=== PATIENT | female | born 1950 | race Caucasian/White ===

== ENCOUNTER 2022-11-13 00:53 | Day surgery (SDC) | payer OTHER, SELFPAY ==
[2022-10-26 13:37] VITALS: BMI 34.2
[2022-11-13 07:15] VITALS: BP 134/78; PULSE 97; RESP 16; TEMP 36.3; O2SAT 100
[2022-11-13 07:27] LABS: Glucose Point of Care 139 mg/dl (65-105)
[2022-11-13] MEDS: LACTATED RINGERS 1,000 ML 150 ML IV CONT (07:27)
--- NOTE | 2022-11-13 07:40 | WPDANESEPPF ---
Anes - Initial Pre Proc Eval Procedure: Operation Date: 11/13/22 08:30 Proposed Procedures p Screening Colonoscopy - Killian Sharma MD Date/Time: 11/13/22 07:40 Surgeon: Killian Sharma MD Pre Op Diagnosis: neoplasm screening Patient Data Age: 72 Gender: F Height: 1.7 m Weight: 97.8 kg Last Vital Signs Temp 36.3 C L 11/13/22 07:15 Pulse 97 11/13/22 07:15 Resp 16 11/13/22 07:15 BP 134/78 11/13/22 07:15 Pulse Ox 100 11/13/22 07:15 O2 Del Method Room Air 11/13/22 07:15 Allergies Allergy/AdvReac Type Severity Reaction Status Date / Time No Known Allergies Allergy Verified 11/13/22 07:14 Home Medications Medication Instructions Recorded Confirmed Type simvastatin 20 mg tablet 20 mg PO DAILY #90 tabs 07/16/22 10/26/22 Rx metformin 1,000 mg tablet 1,000 mg PO BID #180 tabs 07/19/22 10/26/22 Rx levothyroxine 137 mcg tablet 137 mcg PO DAILY #90 tabs 07/23/22 10/26/22 Rx cetirizine 10 mg tablet (Zyrtec) 10 mg PO DAILY PRN allergies 09/06/22 10/26/22 History famotidine 20 mg tablet (Pepcid) 20 mg PO DAILY PRN Acid Reflux 09/06/22 10/26/22 History lisinopril 5 mg tablet 5 mg PO DAILY #90 tabs 10/03/22 10/26/22 Rx sitagliptin phosphate 25 mg tablet 25 mg PO DAILY #90 tabs 10/15/22 10/26/22 Rx (Januvia) Laboratory Tests 11/13/22 07:20 POC Capillary Glucose 139 H mg/dl (65-105) Patient hx anesthesia problems: none Family hx anesthesia problems: none Results Review: All pre-operative results and documents have been reviewed as part of the pre-operative evaluation. 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 Family History Family History Mother Diabetes mellitus Father Cerebrovascular accident Other Family history of Parkinson's disease Family history of arthritis Family history of malignant neoplasm of breast Social History Social History Smoking packs per day: 0.5 Smoking cigarettes per day: 10.0 Years smoked: 5 Smoking pack-years: 2.50 Smoking status: Former smoker Tobacco type: cigarettes Smoking end date: 03/11/82 Alcohol intake: current Drinks per week: 2 Alcohol use details: seldom Substance use: never Substance use type: does not use Lack of Transportation: No Lack of Food: Never True Current Housing: I Have Housing Concerned About Future Housing: No Difficulty Paying Gas/Electric Bills: No Difficulty Paying for Meds: No Currently Unemployed: No Education: Bachelor's Degree Difficulty w/ Childcare or Family Care: No Living arrangements: with family Additional living arrangements comments: Occupation/Education: retired Gender identity (if verbalized by the patient): Female Sexual Orientation (if Verbalized by the Patient): Straight or Heterosexual Spiritual care concerns: No Agree to blood products: Yes Anes - Eval Final PreProcedure Day of Procedure 11/13/22 07:40 Patient weight: obese Heart: regular rate and rhythm Lungs: clear to auscultation Airway: Mallampati scale class II Neurological: alert and oriented Last oral intake: >/= 8 hours ASA classific
--- NOTE | 2022-11-13 08:06 | PM.HPGS ---
History of Present Illness History of Present Illness Consent: Risks, benefits, and alternatives have been discussed and questions answered. Patient agrees to proceed with procedure. Chief complaint: neoplasm screening Narrative: Suzette Sawant is a 72 year old female here for screening colonoscopy, last one 2012 Review of Systems Constitutional: Constitutional: Denies headache(s) and Denies weakness Eyes: Eyes: Denies blurry vision ENT: Reports Normal hearing present, Denies headache(s) and Denies neck pain Cardiovascular: Cardiovascular: Denies chest pain and Denies dyspnea Respiratory: Respiratory: Denies dyspnea Gastrointestinal: Gastrointestinal: Reports no additional gastrointestinal complaints Genitourinary: Genitourinary: Denies dysuria Musculoskeletal: Musculoskeletal: Denies neck pain Integumentary/Breasts: Skin/Breast: Denies dry skin Neurologic: Reports Normal hearing present, Denies headache(s) and Denies weakness Psychiatric: Psychiatric: Denies anxiety Endocrine: Endocrine: Denies change in body appearance Hematologic/Lymphatic: Hematologic/Lymphatic: Denies easy bleeding Allergic/Immunologic: Allergic/Immunologic: Denies urticaria PMFSH Past Medical History Medical History (Updated 11/13/22 @ 08:07 by Killian Sharma MD) CKD (chronic kidney disease) stage 3, GFR 30-59 ml/min Colon cancer screening Environmental allergies Essential (primary) hypertension Gastroesophageal reflux disease without esophagitis Hyperlipidemia, unspecified Hypothyroidism Major depressive disorder, recurrent, unspecified Primary osteoarthritis of left knee Type 2 diabetes mellitus without complications Surgical History Surgical History History of appendectomy (~1988) History of cataract surgery (~2017) b/l History of cholecystectomy (~1988) History of left knee replacement (~2018) 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 Family History Family History Mother Diabetes mellitus Father Cerebrovascular accident Other Family history of Parkinson's disease Family history of arthritis Family history of malignant neoplasm of breast Social History Social History Smoking packs per day: 0.5 Smoking cigarettes per day: 10.0 Years smoked: 5 Smoking pack-years: 2.50 Smoking status: Former smoker Tobacco type: cigarettes Smoking end date: 03/11/82 Alcohol intake: current Drinks per week: 2 Alcohol use details: seldom Substance use: never Substance use type: does not use Lack of Transportation: No Lack of Food: Never True Current Housing: I Have Housing Concerned About Future Housing: No Difficulty Paying Gas/Electric Bills: No Difficulty Paying for Meds: No Currently Unemployed: No Education: Bachelor's Degree Difficulty w/ Childcare or Family Care: No Living arrangements: with family Additional living arrangements comments: Occupation/Education: retired Gender identity (if verbalized by the patient): Female Sexual Orientation (if Verbalized by the Patient): Straight or Heterosexual Spiritual care concerns: No Agree to blood products: Yes Meds Home Medications and Allergies Home Medications Medication Instructions Recorded Confirmed Type simvastatin 20 mg tablet 20 mg PO DAILY #90 tabs 07/16/22 10/26/22 Rx metformin 1,000 mg tablet 1,000 mg PO BID #180 tabs 07/19/22 10/26/22 Rx levothyroxine 137 mcg tablet 137 mcg PO DAILY #90 tabs 07/23/22 10/26/22 Rx cetirizine 10 mg tablet (Zyrtec) 10 mg PO DAILY PRN allergies 09/06/22 10/26/22 History famotidine 20 mg tablet (Pepcid) 20 mg PO DAILY PRN Acid Reflux 09/06/22 10/26/22 History lisinopril 5 mg tablet 5 mg PO DAILY #90 tabs 10/03/22 10/26/22 Rx sitagliptin phosphate 25 mg tablet 25 mg PO DAILY
[2022-11-13 08:22] VITALS: BP 145/59; PULSE 82; RESP 18; O2SAT 98
[2022-11-13 08:32] VITALS: BP 122/75; PULSE 84; RESP 18; O2SAT 100
[2022-11-13 08:42] VITALS: BP 112/73; PULSE 80; RESP 18; O2SAT 100
== END 2022-11-13 08:51 | disposition home or self-care (01) ==
PROVIDERS: PCP Family Medicine; Visit Provider Internal Medicine Gastroenterology
PROC: 0DJD8ZZ Inspection of Lower Intestinal Tract, Via Natural or Artificial Opening Endoscopic (ICD-10-PCS; CPT 45378; principal; 2022-11-13 08:30)
DX: Z12.11 Encounter for screening for malignant neoplasm of colon (principal); K57.30 Diverticulosis of large intestine without perforation or abscess without bleeding; K64.8 Other hemorrhoids; I12.9 Hypertensive chronic kidney disease with stage 1 through stage 4 chronic kidney disease, or unspecified chronic kidney disease; E11.22 Type 2 diabetes mellitus with diabetic chronic kidney disease; N18.30 Chronic kidney disease, stage 3 unspecified; K21.9 Gastro-esophageal reflux disease without esophagitis; E78.5 Hyperlipidemia, unspecified; E03.9 Hypothyroidism, unspecified; F33.9 Major depressive disorder, recurrent, unspecified; Z79.84 Long term (current) use of oral hypoglycemic drugs; Z87.891 Personal history of nicotine dependence; E66.9 Obesity, unspecified; Z68.33 Body mass index [BMI] 33.0-33.9, adult
CPT/HCPCS: 45378; 82948; J2704; J7120

== ENCOUNTER 2023-09-09 12:14 | Outpatient (CLI) | payer OTHER, SELFPAY ==
--- NOTE | ~2023-09-09 | XR_ITS ---
EXAMINATION: XR ankle LT min 3V DATE: 09/09/2023 12:25 INDICATION: Chronic left ankle pain TECHNIQUE: Anteroposterior, oblique, mortise, and lateral views of the left ankle were obtained. COMPARISON: None. FINDINGS: Bone alignment is normal. No fracture. Severe osteoarthritis at the left ankle with extensive cartila ge loss which is essentially [id number] with subarticular sclerosis and cystic change at the attenu ation of the talar dome and tibial plafond with small region of severe joint space narrowing at the a rticulation between the medial malleolus of the medial aspect of the talus. Additional degenerative c hanges as hypertrophic osteophytes at the articulation between the lateral malleolus and the lateral margin of the calcaneus. Additional polyarticular osteoarthritis likely with mild to moderate severit y at the posterior facet of the subtalar joint and at several of the tarsal metatarsal joints in the midfoot. Small plantar calcaneal spur. Soft tissues are unremarkable without evident ankle joint effu austyn. IMPRESSION: 1. Severe osteoarthritis of the left ankle. Reviewed, dictated and finalized at location B.
== END 2023-09-09 12:15 | disposition home or self-care (01) ==
LOC: ANHBWCIMG 12:17
PROVIDERS: PCP Family Medicine; Visit Provider Orthopaedic Surgery
DX: M19.072 Primary osteoarthritis, left ankle and foot (principal)
CPT/HCPCS: 73610

== ENCOUNTER 2024-01-08 09:18 | Outpatient (CLI) | payer OTHER, SELFPAY ==
--- NOTE | ~2024-01-08 | US_ITS ---
Renal-Bladder ultrasound Clinical History: Diabetes, chronic kidney disease Technique: Real-time sonographic imaging of the kidneys and urinary bladder was performed. Findings: The right kidney measures 10.2 cm in length and the left kidney measures 9.6 cm. There is n o hydronephrosis or renal calculus identified. Renal cortical echogenicity is within normal limits. R ight renal cyst noted. The urinary bladder is moderately distended at the time of this exam. No intraluminal echoes are iden tified. No abnormal wall thickening is seen. Impression: No significant abnormality. Reviewed, dictated and finalized at location . Impression: No significant abnormality.
== END 2024-01-08 09:19 | disposition home or self-care (01) ==
LOC: GOSHIMG 09:19
PROVIDERS: PCP Family Medicine; Visit Provider Internal Medicine Nephrology
DX: E11.22 Type 2 diabetes mellitus with diabetic chronic kidney disease (principal); I12.9 Hypertensive chronic kidney disease with stage 1 through stage 4 chronic kidney disease, or unspecified chronic kidney disease; N18.32 Chronic kidney disease, stage 3b
CPT/HCPCS: 76775

== ENCOUNTER 2025-01-15 10:13 | Outpatient (CLI) | payer OTHER, SELFPAY ==
--- NOTE | ~2025-01-15 | DEXA_ITS ---
Bone Density Report Name: ROBIN JACOBO Age: 74 Sex: Female Ethnicity: White Date of : 1950 Indication: postmenopausal; screening for osteoporosis; parental hip fracture; Referring Provider: PAVAN KENDALL Study: Bone densitometry was performed. Exam Date: January 15, 2025 Accession number: [id number] Bone Density: Region BMD T-score Z-score Classification AP Spine(L1, L2) 1.116 1.2 3.5 Normal Femoral Neck (Left) 0.762 -0.8 1.3 Normal Total Hip (Left) 0.940 0.0 1.7 Normal Femoral Neck (Right) 0.757 -0.8 1.2 Normal Total Hip (Right) 0.966 0.2 2.0 Normal Total Hip Mean 0.953 0.1 1.9 Normal World Health Organization criteria for BMD impression classify patients as: Normal (T-score at or above -1.0), Osteopenia (T-score between -1.0 and -2.5), or Osteoporosis (T-score at or below -2.5). 10-year Fracture Risk: FRAX not reported because: All T-scores for Spine Total, Hip Total, Femoral Neck at or above -1.0 Clinical Information Provided by Patient: Parent has had a hip fracture Has used the following medications: Vitamin D Patient maximum height was 68 No regular weight bearing exercise Drinks caffeinated beverages Onset of menses at age 13 Number of children 2 Impression: The patient has normal bone mass. The patient has risk factors, including: parental hip fracture. Discussion: BONE DENSITY IS ABOVE THE MINIMUM DESIRABLE LEVEL AT ALL SKELETAL SITES TESTED. This patient?s bone mineral density is above the minimum desirable level (T-score -1.0 or better) at all sites measured. The patient should follow a healthful lifestyle (good nutrition with adequate calcium and vitamin D, and appropriate weight-bearing exercise). Follow-Up: Consider repeating this study in 5 years or sooner if there is some new clinical indication. Reported by: STEPHANIE on 01/15/2025 10:57:00 AM. Reviewed, dictated and finalized at location A.
--- OUTSIDE RECORDS SUMMARY | 2025-01-15 10:57 | XMS_ITS | Clinical Summary ---
Author Organization [facility] Address [address] [place] [address] Care Team Providers Care Print Buyer Name Role Phone Jack Gunn MD Primary Care Provider [phone] Source Comments [facility],non-owned Affiliates and Associated Physician Practices is amultiple site organization consisting of ambulatory clinics and hospital sitesin [place], [place], [place] and [place]. This disclosure is being madepursuant to the Care Everywhere program and may not contain all information available regarding this patient. Last updated 17.[facility] Allergies No known active allergies Medications * Be aware that medications may not be up to date on this document. Alwaysverify current medications with the patient. METFORMIN HCL PO Active GLIMEPIRIDE PO Activ e LEVOTHYROXINE SODIUM PO Active LISINOPRIL PO Active SIMVASTATIN PO Activ e VENLAFAXINE HCL PO Active Cholecalciferol (VITAMIN D PO) Activ e aspirin (ASPIRIN) 81 MG tablet Take 81 mg by mouth once daily Active Omeprazole (PRILOSEC PO) Active nitrofurantoin monohyd macro crystals (MACROBID) 100 MG capsule Take 1 Cap by mouth 2 times daily with morning and evening meal 14 Cap 01/06/2016 Active Social History Tobacco Use Types Packs/Day Years Used Date Smoking Tobacco: Never Assessed Comments Unknown Sex and Gender Information Value Date Recorded Sex Assigned at Not on file Legal Sex Female 12:27 PM CDT Gender Identity Not on file Sexual Orientation Not on file Last Filed Vital Signs Vital Sign Reading Time Taken Comments Blood Pressure 124/82 01/06/2016 12:41 PM CDT Pulse 83 01/06/2016 12:41 PM CDT Temperature 36.8 C (98.2 F) 01/06/2016 12:41 PM CDT Respiratory Rate - - Oxygen Saturation - - Inhaled Oxygen Concentration - - Weight 108 kg (238 lb) 01/06/2016 12:41 PM CDT Height 171.5 cm (5' 7.5) 01/06/2016 12:41 PM CD T Body Mass Index 36.73 01/06/2016 12:41 PM CDT Plan of Treatment Health Maintenance Due Date Last Done Comments BONE DENSITY TESTING 1950 COLOGUARD (AGES 45-75) - COL ON CA SCREENING 1950 COLON MONITORING 1950 COLONOSCOPY - COLON CA SCREENING 1950 CT COLONOGRAPHY - COLON CA SCREENING 1950 Colorectal Cancer Screening 1950 FIT - COLON CA SCREENING 1950 FLEX SIG - COLON CA SCREENING 1950 MAMMOGRAM 1950 HEPATITIS C SCREENING 05/05/1968 DTAP/TDAP/TD VACCINES (1 - Tdap) 1969 PNEUMOCOCCAL VACCINE 50+ (1 of 1 - PCV) 2000 ZOSTER VACCINE (1 of 2) 2000 DEPRESSION SCREENING 03/11/2024 COVID-19 VACCINE (1 - 2023-2 5 season) 2024 INFLUENZA VACCINE (#1) 2024 6, 12/24/2014, 11/26/2011 Respiratory Syncytial Virus (RSV) Vaccine Pt: or over 60 yrs (1 - 1-dose 75+ series) 2025 HEPATITIS B VACCINE Aged Out No longe r eligible based on patient's age to complete this topic HIB VACCINE Aged Out No longer eligi ble based on patient's age to complete this topic HPV VACCINE Aged Out No longer eligi ble based on patient's age to complete this topic MENINGOCOCCAL (Group B) VACCINE SHARED DECISION-MAKING Aged Out No longer eligible based on patient's age to complete this topic MENINGOCOCCAL GROUPS A/C/Y/W VACCINE Aged Out No longer eligible b ased on patient's age to complete this topic Care Teams Print Buyer Relationship Specialty Start Date End Date Jack Gunn MD PCP - General Family Medicine 01/06/16
--- OUTSIDE RECORDS SUMMARY | 2025-01-15 10:57 | XMS_ITS | Encounter Summary ---
Author Organization [facility] Address [address] [place] [address] Care Team Providers Care Flat Grinder Operator Name Role Phone Renetta Watson NP Primary Care Provider [phone] Jayme Mcpherson MD Primary Care Provider Reason for Visit * Reason Onset Date Comments Scheduling Appointments 11/30/2020 Confirmi ng mammogram appt Encounter Details Date Type Department Care Team (Late st Contact Info) Description 11/30/2020 Telephone [facility] [address] [place] [address] Karishma Epps RT Scheduling Appointments (Confirming mammogram appt) Social History Tobacco Use Types Packs/Day Years Used Date Smoking Tobacco: Former Cigarettes Q uit: 1983 Smokeless Tobacco: Never Alcohol Use Standard Drinks/Week Comments Yes 0 (1 standard drink = 0.6 oz pur e alcohol) PHQ-2 Answer Date Recorded PHQ-2 Score 0 10/29/2018 Comments No Sex and Gender Information Value Date Recorded Sex Assigned at Not on file Legal Sex Female 11:59 AM SUPERVISOR PLASTERING Gender Identity Female 12/15/2024 10:17 AM CDT Sexual Orientation Not on file Occupation Industry Job Start Date Job End Date Teacher Not on file Not on file Not on file documented as of this encounter Plan of Treatment Upcoming Encounters Date Type Department Care Team (Latest Contact Info) Description 03/22/2025 9:00 AM SUPERVISOR PLASTERING Hospital Encounter [facility] Operating Room [id number] [address] [id number] Yane Chavez MD [address] [place] [address] 03/22/2025 9:00 AM SUPERVISOR PLASTERING - 03/22/2025 1:00 PM SUPERVISOR PLASTERING Surgery [facility] Operating Room [id number] [address] [id number] Yane Chavez MD [address] [place] [address] Left total ankle replacement, lateral gutter debridement, possible medial malleolus fixation, possible tendoachilles lengthening Scheduled Procedures Name Priority Associated Diagnoses Date/Ti me ARTHROPLASTY TOTAL ANKLE Arthritis of left ankle 03/22/2025 9:00 AM SUPERVISOR PLASTERING DEBRIDEMENT - ANKLE Arthritis of left ankle 03/22/2025 9:00 AM SUPERVISOR PLASTERING OPEN REDUCTION INTERNAL FIXATION - ANKLE Arthritis of left ankle 03/22/2025 9:00 AM SUPERVISOR PLASTERING LENGTHENING GASTROCNEMIUS Arthritis of left ankle 03/22/2025 9:00 AM SUPERVISOR PLASTERING documented as of this encounter Visit Diagnoses Not on filedocumented in this encounter Care Teams Flat Grinder Operator Relationship Specialty Start Date End Date Renetta Watson NP PCP - General 11/22/20 03/21/23 Jayme Mcpherson MD [address] [place] [address] PCP - General Family Practice 03/22/23 documented as of this encounter
--- OUTSIDE RECORDS SUMMARY | 2025-01-15 10:57 | XMS_ITS | Clinical Summary ---
Author Organization [facility] Address [address] [facility] [address] [place] [address] Phone Care Team Providers Care Wing Commander Name Role Phone Unavailable Primary Care Provider Unavailabl e Allergies No known active allergies Medications Aspirin 81 MG Tablet Take 81 mg by mouth daily. Active cyanocobalamin 1000 MCG Tablet Take 1,000 mcg by mouth daily. Active omeprazole (PRILOSEC) 20 MG CAPSULE DELAYED RELEASE Take 20 mg by mouth daily. Active Cholecalciferol (VITAMIN D3) 1000 UNIT Tablet Take by mouth. Active nitrofurantoin, macrocrystal-mo nohydrate, (MACROBID) 100 MG Capsule TK ONE C PO BID WITH MORNING AND EVENING MEAL 0 01/06/2016 Active glimepiride (AMARYL) 1 MG Tablet TAKE 1 TABLET BY MOUTH EVERY MORNING 30 Tab 0 04/13/2016 Active venlafaxine (EFFEXOR-XR) 75 MG CAPSULE SR 24 HR Take 1 Cap by mouth daily. 30 Cap 3 05/24/2016 Active levothyroxine (SYNTHROID) 137 MCG Tablet TAKE ONE TABLET BY MOUTH DAILY 90 Tab 11/20/2016 Active metFORMIN (GLUCOPHAGE) 1000 MG Tablet TAKE ONE TABLET BY MOUTH TWICE A DAY 180 Tab 03/28/2017 Active lisinopril (PRINIVIL, ZESTRIL) 5 MG Tablet TAKE ONE TABLET BY MOUTH ONCE DAILY 90 Tab 04/18/2017 Active simvastatin (ZOCOR) 20 MG Tablet TAKE ONE TABLET BY MOUTH ONCE DAILY 90 Tab 04/18/2017 Active Active Problems Problem Noted Date Diagnosed Date Dysuria 02/01/2016 Non morbid obesity 11/28/2015 Hyperlipidemia 08/10/2015 Hypothyroidism 08/10/2015 Vitamin D deficiency 02/11/2015 B12 deficiency 02/11/2015 Non-insulin treated type 2 diabetes mellitus 06/2014 Immunizations Immunization Administration Dates Next Due Influenza Vaccine greater than 3 yrs 12/05/2015, 12/24/2014,11/26/2011 Pneumococcal Vaccine - 13 Valent 12/05/2015 Pneumococcal Vaccine Adult - 23 Valent 4 TD VACCINE 03/11/2011 Zoster Vaccine, live 03/11/2011 Family History Medical History Relation Name Comments Stroke Father Diabetes Mother Relation Name Status Comments Father Mother Alive Social History Tobacco Use Types Packs/Day Years Used Date Smoking Tobacco: Former Cigarettes 0.5 10 Smokeless Tobacco: Never Alcohol Use Standard Drinks/Week Comments No 0 (1 standard drink = 0.6 oz pur e alcohol) Comments No Sex and Gender Information Value Date Recorded Sex Assigned at Not on file Legal Sex Female 9:35 PM CDT Gender Identity Not on file Sexual Orientation Not on file Last Filed Vital Signs Vital Sign Reading Time Taken Comments Blood Pressure 128/68 02/01/2016 4:01 PM PADDED PRODUCTS FINISHER Pulse 74 02/01/2016 4:01 PM PADDED PRODUCTS FINISHER Temperature 36.4 C (97.6 F) 02/01/2016 4:01 PM PADDED PRODUCTS FINISHER Respiratory Rate 18 02/01/2016 4:01 PM PADDED PRODUCTS FINISHER Oxygen Saturation 99% 02/01/2016 4:01 PM PADDED PRODUCTS FINISHER Inhaled Oxygen Concentration - - Weight 111.1 kg (245 lb) 02/01/2016 4:01 PM PADDED PRODUCTS FINISHER Height 170.2 cm (5' 7) 02/01/2016 4:01 PM PADDED PRODUCTS FINISHER Body Mass Index 38.37 02/01/2016 4:01 PM PADDED PRODUCTS FINISHER Plan of Treatment Health Maintenance Due Date Last Done Comments Diabetes: Foot Exam 1950 Hepatitis C Virus (HCV) Screening 1950 TdaP Immunization 1950 Cologuard 05/11/1995 Colonoscopy 05/11/1995 Colorectal Cancer Screening 05/11/1995 Immunochemical Fecal Occult Blood 05/11/1995 Zoster Immunization (2 of 3) 05/06/2011 03/11/2011 Diabetes: Hemoglobin A1c 02/16/2016 016, 03/23/2015, 01/31/2015 Diabetes: Nephropathy Screening 08/16/2016 08/17/2015 Diabetes: Eye Exam 04/23/2017 04/23/2016 Pneumococcal Immunization (5 0+ years) (3 of 3 - PCV20 or PCV21) 12/04/2020 12/05/2015, 12/10/2003 Influenza Immunization (#1) 11/09/202411/10, 12/24/2014, 11/26/2011 SARS-COV-2 Immunization ( - season) 2024 Respiratory Syncytial Virus (RSV) Immunization (Adult) (1 - 1-dose 75+ series) 2025 Pneumococcal Immunization Combined Discontinued 12/05/2015, 12/10/2003 Mammogram Discontinued 01/24/2016 Hepatitis B Immunization Aged Out No longer eligible based on patient's age to complete this topic Human Papillomavirus (HPV) Immunization Aged Out No longer eligible based on patient's age to complete this topic Meningococcal Immunization (ACWY) Aged Out No longer eligible based on patient's age to complete this topic Rotavirus Immunization Aged Out No lo nger eligible based on patient's age to complete this topic Procedures Procedure Name Priority Date/Time Associated Diagnosis Comments DILATED EYE EXAM Routine 04/23/2016 DULCE SCREENING BILATERAL DIGITAL W CAD Routine 01/24/2016 Encounter for screening mammogram for breast cancer CMP (COMPREHENSIVE METABOLIC PANEL) Routine 08/17/2015 Hyperlipidemia, unspecified hyperlipidemia type HEMOGLOBIN A1C W/ ESTIMATED GLUCOSE Routine 08/17/2015 Non-insulin treated type 2 diabetes mellitus from Last 3 Months or Most Recently Relevant to Health Maintenance Results * DILATED EYE EXAM (04/23/2016) us Jack Gunn MD PROCEDURE/MINOR SURGICAL ORDERABLES Final Result * DULCE SCREENING BILATERAL DIGITAL W CAD (01/24/2016) Anatomical Region Laterality Modality breast Bilateral Other us Jack Gunn MD IMG MAMMO ORDERABLES [facility] Result * HEMOGLOBIN A1C W/ ESTIMATED GLUCOSE (08/17/2015) HGB-A1C 6.0 % Blood specimen (specimen) 08/17/2015 Jack Gunn MD CHEMISTRY ORDERABLES [facility] Result * CMP (COMPREHENSIVE METABOLIC PANEL) (08/17/2015) Blood specimen (specimen) Jack Gunn MD CHEMISTRY ORDERABLES [facility] Result from Last 3 Months or Most Recently Relevant to Health Maintenance
--- OUTSIDE RECORDS SUMMARY | 2025-01-15 10:57 | XMS_ITS | Clinical Summary ---
Author Organization [facility] Medical Office Building [address] Address [address] [place] [address] Care Team Providers Care Washing Machine Assembler Name Role Phone Jayme Mcpherson MD Primary Care Provider Allergies No known active allergies Medications cholecalciferol (VITAMIN D3) 2,000 unit capsule Take by mouth daily Active cyanocobalamin (Vitamin B-12) 1,000 mcg tablet Take 1,000 mcg by mouth daily Active levothyroxine (SYNTHROID, LEVOTHROID) 137 mcg tablet dredge mate before breakfast 9 Active lisinopril (PRINIVIL,ZESTR IL) 5 mg tablet TAKE ONE TABLET BY MOUTH ONCE DAILY 8 Active metFORMIN (GLUCOPHAGE) 1,000 mg tablet TAKE ONE TABLET BY MOUTH TWICE A DAY 8 Active simvastatin (ZOCOR) 20 mg tablet TAKE ONE TABLET BY MOUTH ONCE DAILY 8 Active mupirocin (BACTROBAN) 2 % ointment Rub ointment in each nostril BID for the 5 days before surgery. 22 g 5 Active Active Problems Problem Noted Date Diagnosed Date Arthritis of left ankle 12/28/2024 Primary osteoarthritis of left knee 10/10/2018 Overview (10/13/2018): Added automatically from request for surgery [id number] Encounters Date Type Department Care Team Description 12/22/2024 12:20 PM CDT Office Visit [facility] Medicine Orthopaedic Surgery [address] [facility] Medical Office Building [address] [place] [address] Yane Chavez MD Arthritis of left ankle (Primary Dx) 12/22/2024 10:58 AM CDT - 12/22/2024 11:59 PM CDT Hospital Encounter [facility] Imaging [address] [address] Primary osteoarthritis of left ankle Discharge Disposition: Discharge to home or self care 12/15/2024 Orders Only [facility] Medicine Orthopaedic Surgery [address] [facility] 2[address] [place] [address] Courtney Sullivan RN Primary osteoarthritis of left ankle; Left ankle pain, unspecified chronicity from Last 3 Months Surgical History Surgery Date Site/Laterality Comments BREAST BIOPSY 05/19/2018 Left benign uls bx CHOLECYSTECTOMY CATARACT EXTRACTION Cataract surgery X2 BREAST LUMPECTOMY 03/11/1999 - 03/10/2000 Left benign fibroadenoma removed surgically 1999? JOINT REPLACEMENT 10/2018 Medical History Medical History Date Comments Hx Other Medical gall bladder Depression Depression Diabetes mellitus Diabetes Osteoarthritis Osteoarthritis Hypertension Hypercholesteremia Thyroid disease GERD (gastroesophageal reflux disease) Type 2 diabetes mellitus Hypothyroidism Chronic kidney disease Family History Medical History Relation Name Comments Arthritis Mother Ruth Diabetes Mother Ruth Miscarriages / Stillbirths Mother Ruth Arthritis Other 1 Blood Clot Other 1 Cancer Other 1 Family history of Cancer; Lung disease Other 1 Stroke Other 1 Diabetes Other 2 Family history of Diabetes mellitus; Breast cancer Sister margarita Ovarian cancer Neg Hx Thyroid cancer Neg Hx Relation Name Status Comments Mother Ruth Other 1 Other 2 Sister margarita Alive Social History Tobacco Use Types Packs/Day Years Used Date Smoking Tobacco: Former Cigarettes 0.3 5 Q uit: 1983 Smokeless Tobacco: Never Tobacco Cessation:Counseling Given: Not Answered Alcohol Use Standard Drinks/Week Comments Yes 0 (1 standard drink = 0.6 oz pur e alcohol) PHQ-2 Answer Date Recorded PHQ-2 Score 0 10/29/2018 Comments No Sex and Gender Information Value Date Recorded Sex Assigned at Not on file Legal Sex Female 11:59 AM UNIT TECHNICIAN Gender Identity Female 12/15/2024 10:17 AM CDT Sexual Orientation Not on file Occupation Industry Job Start Date Job End Date Teacher Not on file Not on file Not on file Obstetrics History Para Term AB IAB SAB Ectopic Multiple Livin g Live Births 3 2 2 Date Outcome GA Total Labor Labor/2nd/3rd Weight Sex Type Anes PTL Isatu A1 A5 Name Clin Term Term Last Filed Vital Signs Vital Sign Reading Time Taken Comments Blood Pressure 149/60 10/15/2019 11:15 AM CDT Pulse 111 10/15/2019 11:15 AM CDT Temperature 36.3 C (97.3 F) 10/15/2019 11:15 AM CDT Respiratory Rate 20 10/28/2018 11:09 AM CDT Oxygen Saturation 96% 10/28/2018 11:09 AM CDT Inhaled Oxygen Concentration - - Weight 94.8 kg (209 lb) 12/22/2024 12:08 PM CDT Height 170.2 cm (5' 7) 12/22/2024 12:08 PM CDT Body Mass Index 32.73 12/22/2024 12:08 PM CDT Plan of Treatment Upcoming Encounters Date Type Department Care Team (Latest Contact Info) Description 03/22/2025 9:00 AM UNIT TECHNICIAN Hospital Encounter [facility] Operating Room [address] [address] [address] Yane Chavez MD [address] [place] [address] 03/22/2025 9:00 AM UNIT TECHNICIAN - 03/22/2025 1:00 PM UNIT TECHNICIAN Surgery [facility] Operating Room [address] [address] [address] Yane Chavez MD [address] [address] Left total ankle replacement, lateral gutter debridement, possible medial malleolus fixation, possible tendoachilles lengthening Scheduled Procedures Name Priority Associated Diagnoses Date/Ti me ARTHROPLASTY TOTAL ANKLE Arthritis of left ankle 03/22/2025 9:00 AM UNIT TECHNICIAN DEBRIDEMENT - ANKLE Arthritis of left ankle 03/22/2025 9:00 AM UNIT TECHNICIAN OPEN REDUCTION INTERNAL FIXATION - ANKLE Arthritis of left ankle 03/22/2025 9:00 AM UNIT TECHNICIAN LENGTHENING GASTROCNEMIUS Arthritis of left ankle 03/22/2025 9:00 AM UNIT TECHNICIAN Health Maintenance Due Date Last Done Comments Fall Risk Assessment 1950 Hepatitis C Screening 1950 Hepatitis B Screening 1968 Well Visit 65+ 05/11/2015 Depression Screening 10/11/2019 10/10/2018 Osteoporosis Screening-Bone Density Scan 12/01/2022 12/01/2020, 06/18/2017 Colon Cancer Screening-Colonoscopy 03/23/2023 03/23/2013 Influenza Vaccine (#1) 2024 9, 12/09/2017, 01/13/2017, Additional history exists Breast Cancer Screening-Mammogram 05/11/2025 05/11/2024, 03/25/2023, 02/07/2022, Additional history exists DTaP/Tdap/Td Vaccine (4 - Td or Tdap) 03/27/2027 03/27/2017, 03/11/2011, 03/11/2011 Colon Cancer Screening-CT Colonography Discontinued 03/23/2013 Colon Cancer Screening-DNA Stool Discontinued 03/23/19 14 Colon Cancer Screening-FIT Discontinued 03/23/2013 Colon Cancer Screening-Sigmoidoscopy Discontinued 03/23/2013 Pneumococcal vaccine 65+ Completed 018, 03/11/2017, 01/13/2017, Additional history exists Zoster Vaccine Completed 05/19/2019, 1211/2018, 03/27/2017, Additional history exists Goals Goal Patient Goal Type Associated Problems Recent Progress Patient-Stated? Author Autogenerat ed Goal Care Plan Autogenerated Problem No Zenaida Eng RN Medical Devices Implanted Type Area In Service Coordinator Device Identifier Shelf Expiration Date Model / Serial / Lot [employer] 6195-1-001 Cement Bone Simplex Gentamicin High Viscosity 40gm - [id number] Implanted:Qty: 1 on 10/27/2018 by Daniel Gilliam MD at [facility] Bone Cement Left: Knee [employer] 05/08/2020 6195-1-001 / / [id number] [employer] [id number] Ultraclip Bard 17ga 12cm 2 Trigger Permanent Ultrasound - [id number] - [id number] Implanted:Qty: 1 on 05/19/2018 by Robert Ford MD at [facility] Breast Left: Breast [employer] 10/05/2020 [id number] / [id number] / [employer] 6195-1-001 Cement Bone Simplex Gentamicin High Viscosity 40gm - [id number] Implanted:Qty: 1 on 10/27/2018 by Daneil Gilliam MD at [facility] Left: Knee [employer] 05/08/2020 6195-1-001 / / [id number] [employer] [id number] Attune Cemented Posterior Stabilize Knee Left 5 Component Femoral - [id number] Implanted:Qty: 1 on 10/27/2018 by Daniel Gilliam MD at [facility] Left: Knee [employer] 08/08/2028 [id number] / / [id number] [employer] [id number] Attune S+ Cement Fix Bearing Knee 6 Baseplate Tibial - [id number] Implanted:Qty: 1 on 10/27/2018 by Daniel Gilliam MD at [facility] Left: Knee [employer] 08/08/2028 [id number] / / [id number] [employer] [id number] Attune 7mm Posterior Stabilize Fix Bearing Knee 5 Insert Tibial - [id number] Implanted:Qty: 1 on 10/27/2018 by Daniel Gilliam MD at [facility] Left: Knee [employer] 11/08/2022 [id number] / / [id number] Procedures Procedure Name Priority Date/Time Associated Diagnosis Comments CT ANKLE LEFT WO CONTRAST Schedule Routine, Read Routine (OP Routine) 12/22/2024 11:08 AM CDT Primary osteoarthritis of left ankle VITAMIN D 25 HYDROXY Routine 12/21/2024 8:32 AM CDT Primary osteoarthritis of left ankle Left ankle pain, unspecified chronicity HEMOGLOBIN A1C Routine 12/21/2024 8:32 AM CDT Primary osteoarthritis of left ankle Left ankle pain, unspecified chronicity SCREENING MAMMOGRAM BILATERAL W [place] Schedule Routine, Read Routine (OP Routine) 05/11/2024 9:46 AM UNIT TECHNICIAN Screening mammogram, encounter for DEXA AXIAL SKELETON BONE DENSITY 1 OR MORE SITES Schedule Routine, Read Routine (OP Routine) 12/01/2020 2:02 PM CDT Asymptomatic menopausal state COLONOSCOPY 03/23/2013 12:00 AM UNIT TECHNICIAN from Last 3 Months or Most Recently Relevant to Health Maintenance Results * CT Ankle Left WO Contrast (12/22/2024 11:08 AM CDT) Anatomical Region Laterality Modality Ankle Left Computed Tomogra phy 12/22/2024 1:38 PM CDT Impressions 12/22/2024 2:25 PM CDT 1. Preoperative planning CT demonstrates severe left ankle osteoarthritis. 2. 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 Dictated by: Toni Delacruz MD The radiology attending physician has personally reviewed this study, and had reviewed and/or edited this written report and agrees with it. Electronically signed by: Percy Arvizu M.D. Narrative 12/22/2024 2:25 PM CDT EXAMINATION: CT ANKLE LEFT WO CONTRAST HISTORY: Left ankle arthritis TECHNIQUE: Transaxial computed tomographic images of the left ankle were obtained without intravenous contrast according to the [facility] protocol COMPARISON: 01/27/2024 FINDINGS: There is severe tibiotalar, subtalar, and first metatarsophalangeal joint osteoarthritis with varus alignment of the left ankle. Severe polyarticular midfoot osteoarthritis, most notably the tarsometatarsal joints. Multiple juxta-articular marginal erosions and periarticular calcified tophi are present about the tarsometatarsal and first metatarsophalangeal joints. No acute fracture or aggressive osseous lesion is identified. A left total knee arthroplasty is present with a small knee joint effusion. No periprosthetic fracture or loosening is seen. Procedure Note Percy Arvizu MD - 12/22/2024 EXAMINATION: CT ANKLE LEFT WO CONTRAST HISTORY: Left ankle arthritis TECHNIQUE: Transaxial computed tomographic images of the left ankle were obtained without intravenous contrast according to the [facility] protocol COMPARISON: 01/27/2024 FINDINGS: There is severe tibiotalar, subtalar, and first metatarsophalangeal joint osteoarthritis with varus alignment of the left ankle. Severe polyarticular midfoot osteoarthritis, most notably the tarsometatarsal joints. Multiple juxta-articular marginal erosions and periarticular calcified tophi are present about the tarsometatarsal and first metatarsophalangeal joints. No acute fracture or aggressive osseous lesion is identified. A left total knee arthroplasty is present with a small knee joint effusion. No periprosthetic fracture or loosening is seen. IMPRESSION: 1. Preoperative planning CT demonstrates severe left ankle osteoarthritis. 2. 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 Dictated by: Toni Delacruz MD The radiology attending physician has personally reviewed this study, and had reviewed and/or edited this written report and agrees with it. Electronically signed by: Percy Arvizu M.D. us Yane Chavez MD IMG CT PROCEDURES Final Re sult * Vitamin D 25 hydroxy (12/21/2024 8:32 AM CDT) Vitamin D 25-OH 59 30 - 100 ng/mL [facility] Comment: Vitamin D Status 25-OH Vitamin D: Deficiency: <20 ng/mL Insufficiency: 20 - 29 ng/mL Optimal: > or = 30 ng/mL For 25-OH Vitamin D testing on patients on D2-supplementation and patients for whom quantitation of D2 and D3 fractions is required, the QuestAssureD(TM) 25-OH VIT D, (D2,D3), LC/MS/MS is recommended: order code 87760 (patients >2yrs). See Note 1 Note 1 For additional information, please refer to http://education.Myagi.Humansized/faq/VNS429 (This link is being provided for informational/ educational purposes only.) Blood 12/21/2024 8:32 AM CDT 12/21/2024 8:32 AM CDT us Yane Chavez MD LAB BLOOD ORDERABLES Final Result [facility] [address] [address] * (ABNORMAL) Hemoglobin A1c (12/21/2024 8:32 AM CDT) Hgb A1C 6.3(H) <5.7 % of total Hgb [facility] Comment: For someone without known diabetes, a hemoglobin A1c value between 5.7% and 6.4% is consistent with prediabetes and should be confirmed with a follow-up test. For someone with known diabetes, a value <7% indicates that their diabetes is well controlled. A1c targets should be individualized based on duration of diabetes, age, comorbid conditions, and other considerations. This assay result is consistent with an increased risk of diabetes. Currently, no consensus exists regarding use of hemoglobin A1c for diagnosis of diabetes for children. Blood 12/21/2024 8:32 AM CDT 12/21/2024 8:32 AM CDT us Yane Chavez MD LAB BLOOD ORDERABLES Final Result Performing Organization Address [facility] Co de Phone Number [facility] [address] [place] [address] * Screening Mammogram Bilateral W [place] (05/11/2024 9:46 AM UNIT TECHNICIAN) Anatomical Region Laterality Modality Breast Bilateral Mammography 05/11/2024 12:0 1 PM UNIT TECHNICIAN Impressions 05/11/2024 12:01 PM UNIT TECHNICIAN There is no mammographic evidence to suggest malignancy. The patient may continue screening mammography as per ACR guidelines. FINAL ASSESSMENT: BI-RADS Category 1: Negative. Electronically signed by: Dawna Walsh M.D. Narrative 05/11/2024 12:01 PM UNIT TECHNICIAN EXAMINATION: BILATERAL SCREENING MAMMOGRAM WITH TOMOGRAPHY HISTORY: Screening. COMPARISON(S): 2023, 2021, and 2020 TECHNIQUE: Full-field 2D images and digital tomosynthesis images were obtained. CAD was utilized. BREAST PARENCHYMAL COMPOSITION: There are scattered areas of fibroglandular density. FINDINGS: There is a biopsy marker on the left. There are no suspicious masses. No suspicious calcifications are seen. There is no unexplained architectural distortion. There is no skin thickening seen. There are no mammographically abnormal lymph nodes seen in the axillae or elsewhere. us Self Screening Mammogram IMG MAMMO PROCEDURES Fi nal Result * Dexa Axial Skeleton Bone Density 1 or 2 Site (12/01/2020 2:02 PM CDT) Anatomical Region Laterality Modality Body N/A Other 12/01/2020 2:24 PM CDT Narrative 12/01/2020 2:25 PM CDT EXAM DESCRIPTION: DEXA AXIAL SKELETON BONE DENSITY 1 OR MORE SITES REASON FOR STUDY: 70 y/o year old F with given history of screening. In Service Coordinator/Model: [employer] (S/N [id number]) CLINICAL INFORMATION: Current height: 67 inches Maximum height: 68 inches Weight: 236.2 pounds Risk factors: Parent with hip fracture COMPARISON: 06/18/2017 FINDINGS: AP LUMBAR SPINE L1-L4: Total BMD is 1.236 g/cm2 T-score is 1.7 Most recent prior BMD was 1.209 g/cm2 There has been a 2.2% increase in BMD which is statistically significant. LEFT HIP: Current Total BMD is 1.023 g/cm2 T-score is 0.7 Most recent prior Total BMD was 1.008 g/cm2 There has been a 1.5% increase in BMD which is not statistically significant. Current femoral neck BMD is 0.837 g/cm2 T-score is -0.1 IMPRESSION: Normal. FRAX not reported due to all T-scores being at or above -1.0. REFERENCE: Bone mineral density: Normal (T-score above or = -1.0) Low bone mass (T-score between -1.0 and -2.5) replaces the previously used term osteopenia Osteoporosis (T-score = or below -2.5) Medical evaluation for secondary causes of low bone mineral density may be appropriate. FRAX is a World Health Organization validated fracture risk assessment tool that calculates a person's 10 year probability of a major osteoporosis related fracture and hip fracture. According to the National Osteoporosis Foundation guidelines, postmenopausal women and men age 50 or older with low bone mass and a 10 year probability of a major osteoporosis related fracture = or greater than 20% or a 10 year probability of a hip fracture = or greater than 3% should be considered for treatment. For further information, including treatment recommendations, please refer to the 2013 ISCD Official Positions (http://www.iscd.org) and the NOF's Clinician's Guide to Prevention and Treatment of Osteoporosis (http://www.nof.org/professionals/clinical-guidelines) THIS IS AN ELECTRONICALLY VERIFIED FINAL REPORT 12/01/2020 2:25 PM - Electronically signed by Radha Laird M.D. TB: TB Report ID: [id number] Reading Location: [facility] Procedure Note Radha Laird MD - 12/01/2020 EXAM DESCRIPTION: DEXA AXIAL SKELETON BONE DENSITY 1 OR MORE SITES REASON FOR STUDY: 70 y/o year old F with given history of screening. In Service Coordinator/Model: [employer] (S/N [id number]) CLINICAL INFORMATION: Current height: 67 inches Maximum height: 68 inches Weight: 236.2 pounds Risk factors: Parent with hip fracture COMPARISON: 06/18/2017 FINDINGS: AP LUMBAR SPINE L1-L4: Total BMD is 1.236 g/cm2 T-score is 1.7 Most recent prior BMD was 1.209 g/cm2 There has been a 2.2% increase in BMD which is statisticallysignificant. LEFT HIP: Current Total BMD is 1.023 g/cm2 T-score is 0.7 Most recent prior Total BMD was 1.008 g/cm2 There has been a 1.5% increase in BMD which is not statisticallysignificant. Current femoral neck BMD is 0.837 g/cm2 T-score is -0.1 IMPRESSION: Normal. FRAX not reported due to all T-scores being at or above -1.0. REFERENCE: Bone mineral density: Normal (T-score above or = -1.0) Low bone mass (T-score between -1.0 and -2.5) replaces thepreviously used term osteopenia Osteoporosis (T-score = or below -2.5) Medical evaluation for secondary causes of low bone mineral density may be appropriate. FRAX is a World Health Organization validated fracture risk assessmenttool that calculates a person's 10 year probability of a major osteoporosisrelated fracture and hip fracture. According to the National OsteoporosisFoundation guidelines, postmenopausal women and men age 50 or older with low bonemass and a 10 year probability of a major osteoporosis related fracture = or greater than 20% or a 10 year probability of a hip fracture = or greaterthan 3% should be considered for treatment. For further information, including treatment recommendations, please referto the 2013 ISCD Official Positions (http://www.iscd.org) and the NOF's Clinician's Guide to Prevention and Treatment of Osteoporosis (http://www.nof.org/professionals/clinical-guidelines) THIS IS AN ELECTRONICALLY VERIFIED FINAL REPORT 12/01/2020 2:25 PM - Electronically signed by Radha Laird M.D. TB: TB Report ID: [id number] Reading Location: [facility] Renetta Watson TOOL MACHINIST IMG DXA PROCEDURES Final Resu lt * COLONOSCOPY (03/23/2013 12:00 AM UNIT TECHNICIAN) Anatomical Region Laterality Modality Other Narrative 03/23/2013 12:00 AM UNIT TECHNICIAN Ordered by an unspecified provider. Procedure Note Provider, MD Richard - 03/23/2013 12:00 AM CST PROCEDURE REPORT Patient: SUZETTE SAWANT Account: [id number] Room No: : 1950 Patient Type: [facility] Attend.: Aj Berrios M.D. Admit Date: 03/23/2013 Dict.: Aj Berrios M.D. Disch. Date: 03/23/2013 NAME OF PROCEDURE: Colonoscopy. HISTORY This is a 62-year-old female who presents for screening colonoscopy. PHYSICAL EXAMINATION This is a well developed female. Lungs are clear. Cardiovascular examwas unremarkable. PROCEDURE Colonoscopy was performed with the Olympus video endoscope. The patientwas premedicated by anesthesia. On digital exam, she has grade III hemorrhoids. We inserted theendoscope through a severely diverticular latent sigmoid and from there went tothe cecum. The patient was well prepped and visualized. We carefully searchedthe colonic mucosa and could find no evidence of inflammation or neoplasiaanywhere through the length of the bowel. The patient tolerated the procedurewithout difficulty. POSTOPERATIVE DIAGNOSES 1. Severe sigmoid diverticulosis. 2. Hemorrhoidal disease. 3. Otherwise normal. PLAN Surveillance in ten years. Aj Berrios M.D. /peter TD: 03/24/2013 06:15 CC: Jennyfer Rockwell M.D. Authenticated by Aj Berrios MD On 03/24/2013 09:07:28 AM Historical Provider ENDOSCOPY PROCEDURES Kyleigh l Result from Last 3 Months or Most Recently Relevant to Health Maintenance Additional Health Concerns Active Problems Noted Date Diagnosed Date Autogenerated Problem 12/28/2024 Insurance Poke'n Call OPEN ACCESS MEDICARE [facility] Address: [address] [address] [place] [address] [employer] OPEN ACCESS [employer] OPEN ACCESS [employer] OPEN ACCESS MEDICARE [facility] Address: [address] [address] [place] [address] Advance Directives For more information, please contact: [phone] * Full Code (Latest Code Status on File) Date Activated Date Inactivated Comments 10/27/2018 2:20 PM 10/28/2018 7:58 PM Care Teams Washing Machine Assembler Relationship Specialty Start Date End Date Jayme Mcpherson MD [address] [facility] [place] [address] [place] [address] PCP - General Family Practice 03/22/23
== END 2025-01-15 10:14 | disposition home or self-care (01) ==
LOC: ANHFOHIMG 10:13
PROVIDERS: PCP Family Medicine; Visit Provider Nurse Practitioner Family
DX: Z13.820 Encounter for screening for osteoporosis (principal); Z78.0 Asymptomatic menopausal state
CPT/HCPCS: 77080